=== PATIENT | female | born 1990 | race Caucasian/White ===

== ENCOUNTER 2018-02-06 14:18 | Emergency (ER) | payer SELFPAY ==
[~2018-02-06] VITALS: Ht 165.1 cm; Wt 72.6 kg
[2018-02-06 14:21] VITALS: Ht 165.1 cm; Wt 72.6 kg
[2018-02-06 16:06] VITALS: BP 144/89
== END 2018-02-06 16:06 | disposition home or self-care (01) ==
LOC: ED 14:18
DX: J45.901 Unspecified asthma with (acute) exacerbation (principal)
CPT/HCPCS: J7512; J7620; Q0092